=== PATIENT | male | born 1980 | race Caucasian/White ===

== ENCOUNTER 2016-06-10 07:35 | Day surgery (SDC) | payer OTHER, SELFPAY ==
[~2016-06-10 07:35] MED LIST: Bupivacaine 0.5% 50 ML MDV ONE; Lidocaine 1% with EPINEPHrine 1:100,000 50 ML MDV ONE
[2016-06-10] MEDS ORDERED: Sodium Chloride 0.9% 1,000 ML IV SCH (08:00)
[2016-06-10] MEDS ORDERED: ceFAZolin 2 GM in Premix Bag 1 BAG IV ONE (09:00)
[2016-06-10] MEDS ORDERED: fentaNYL 100 MCG/2 ML SDV ONE (09:04)
[2016-06-10] MEDS ORDERED: Midazolam 1 MG/ML 2 ML SDV ONE (09:04)
[2016-06-10] MEDS ORDERED: Propofol 200 MG/20 ML SDV ONE (09:04)
[2016-06-10] MEDS ORDERED: Bacitracin Oint 1 GM U/D Packet ONE (09:28)
[2016-06-10] MEDS ORDERED: Acetaminophen/HYDROcodone 325-5 MG Tab PO PRN (09:59)
[2016-06-10 10:28] VITALS: BP 120/72
--- NOTE | 2016-06-13 07:34 | OR ---
DATE OF PROCEDURE: 06/10/2016 PROCEDURE: Escharotomy, left thigh (3.2 x 5.1 cm). COMPLICATIONS: None. COST RECORDER: None. ANESTHESIA: MAC/local. INDICATIONS: This is a 36-year-old gentleman with an eschar due to a traumatic injury of his left leg. RISKS: The risks, benefits, alternatives, and limitations, including, but not limited to infection, bleeding, and reoperation were explained to the patient. PROCEDURE IN DETAIL: The patient was placed in supine position. The eschar was readily identified after being prepped and draped. This was removed using a Weck blade. This was carried down to where there was minimal bleeding, was controlled with direct pressure. After this, bacitracin and 4 x 4 dressings were applied. The patient tolerated the procedure well. Frankie León MD /[id number]
== END 2016-06-10 10:30 | disposition home or self-care (01) ==
LOC: JP.SDS 07:35
PROVIDERS: ATTEND Surgery
DX: R23.4 Changes in skin texture (principal); F41.8 Other specified anxiety disorders; E66.9 Obesity, unspecified; F17.200 Nicotine dependence, unspecified, uncomplicated; Z91.030 Bee allergy status; F90.9 Attention-deficit hyperactivity disorder, unspecified type
CPT/HCPCS: 16035; A9270; J0690; J2250; J2704; J3010; J7040

== ENCOUNTER 2016-06-17 20:34 | Emergency (ER) | payer OTHER, SELFPAY ==
[2016-06-17 21:19] VITALS: BP 153/80
--- NOTE | 2016-06-18 01:15 | EDM.PDOC ---
ED HPI GENERAL MEDICAL PROBLEM - General Chief Complaint: General Stated Complaint: illness Time Seen by Provider: 06/17/16 21:46 Source of Information: Reports: Patient, Family History Limitations: Reports: Physical impairment - History of Present Illness INITIAL COMMENTS - FREE TEXT/NARRATIVE: This patient was brought in by lady who I believe it is his . He's complaining of headaches today which began suddenly. He's never had headaches like this before. He said the headache comes on and then he gets sweaty and feels like he's going to pass out. Tonight he felt drunk and" fuzzy". His headache presently is pretty mild. He has not been vomiting. He has been eating and drinking okay. He has not taken anything for this headache. He denies any fever or chills. He denies any neck pain or stiffness. He denies body aches. Headache Pain Score (Numeric/FACES): 5 - Related Data Allergies Allergy/AdvReac Type Severity Reaction Status Date / Time venom-honey bee Allergy Airway Verified 06/10/16 08:29 [bee venom (honey bee)] Tightness Home Meds: Home Meds Acetaminophen/HYDROcodone [[place] 325-5 MG] 1 tab PO Q4H PRN 06/09/16 [History] Magnesium Oxide 400 mg PO BEDTIME 06/09/16 [History] Prazosin [Minpress] 1 mg PO BEDTIME 06/09/16 [History] QUEtiapine Fumarate [Seroquel] 50 mg PO BEDTIME 06/09/16 [History] Sulfamethoxazole/Trimethoprim [Bactrim Ds Tablet] 1 each PO BID 06/09/16 [ History] Zolpidem Tartrate [Ambien] 10 mg PO BEDTIME 06/09/16 [History] risperiDONE [RisperiDAL] 0.5 mg PO BEDTIME 06/09/16 [History] Hydrocodone/Acetaminophen [Hydrocodon-Acetaminophen 5-325] 1 each PO Q4HR [History] Past Medical History HEENT History: Reports: Otitis media, Other (see below) Other HEENT History: fb eye in past Cardiovascular History: Reports: None Respiratory History: Reports: None Gastrointestinal History: Reports: None Genitourinary History: Reports: None Musculoskeletal History: Reports: Fracture, Other (see below) Other Musculoskeletal History: ankle problem AND FEMUR FRACTURE Neurological History: Reports: None Psychiatric History: Reports: Anxiety, Bipolar, Depression, PTSD, Schizophrenia Endocrine/Metabolic History: Reports: Obesity/BMI 30+ Hematologic History: Reports: Blood transfusion(s) Immunologic History: Reports: None Oncologic (Cancer) History: Reports: None Dermatologic History: Reports: Other (see below) Other Dermatologic History: OPEN WOUND LEFT THIGH - Infectious Disease History Infectious Disease History: Reports: Chicken pox - Past Surgical History HEENT Surgical History: Reports: Myringotomy w tube(s) GI Surgical History: Reports: Hernia repair/other Other Musculoskeletal Surgeries/Procedures:: surgery left thigh Dermatological Surgical History: Reports: Skin graft Social & Family History - Family History Family Medical History: Noncontributory - Tobacco Use Smoking Status *Q: Current Every Day Smoker Years of Tobacco use: 20 Packs/Tins Daily: 2 Used Tobacco, but Quit: No Second Hand Smoke Exposure: No - Caffeine Use Caffeine Use: Reports: None - Alcohol Use Days Per Week of Alcohol Use: 1 Number of Drinks Per Day: 1 Total Drinks Per Week: 1 - Recreational Drug Use Recreational Drug Use: Yes Drug Use in Last 12 Months: Yes Recreational Drug Type: Reports: Marijuana/Hashish Recreational Drug Use Frequency: Daily ED ROS GENERAL - Review of Systems Review Of Systems: See Below Constitutional: Reports: other (See HPI) HEENT: Reports: Other (He denies any ear pain. He's had a lot of problems with his years in the past and still has a tube lodged in the right tympanic membrane.) Respiratory: Reports: No Symptoms Cardiovascular: Reports: No symptoms Endocrine: Reports: no symptoms GI/Abdominal: Reports: No symptoms : Reports: no symptoms Musculoskeletal: Reports: no symptoms. Denies: neck pain Skin: Reports: no symptoms Neurological: Reports: Headache, Other (See HPI) Psychiatric: Reports: No symptoms Hematologic/Lymphatic: Reports: no symptoms ED EXAM, GENERAL - Physical Exam Exam: See Below Exam Limited By: No limitations General Appearance: other (He seems somnolent but is actually awake and opens his eyes to be examined) Eye Exam: bilateral eye: EOMI, normal fundi (Unable to visualize fundi), PERRL Ears: other (Right tympanic membrane shows a blue tube embedded in it there is no erythema. There is no tenderness to the right mastoid. The left tympanic membrane has some cerumen impaction also that ear is nontender) Nose: normal inspection Throat/Mouth: Normal inspection, Normal oropharynx Head: atraumatic Neck: normal inspection, supple, non-tender, full range of motion Respiratory/Chest: wheezing (There is a loud wheeze in the right upper lung field anteriorly. This disappears after the exam) Cardiovascular: normal peripheral pulses, regular rate, rhythm, no murmur Peripheral Pulses: 2+: radial (L), radial (R) GI/Abdominal: soft, non tender Back Exam: normal inspection Extremities: normal inspection Neurological: alert (He seemed more alert after I had him lie supine and then later said up.), oriented, CN II-XII intact, normal cognition, no motor/sensory deficits Psychiatric: normal affect Skin Exam: Warm, Dry Course - Vital Signs Last Recorded V/S: Last Vital Signs Temp 37.2 C 06/17/16 21:37 Pulse 78 06/17/16 21:37 Resp 16 06/17/16 21:37 BP 153/80 H 06/17/16 21:37 Pulse Ox 98 06/17/16 21:37 - Orders/Labs/Meds Orders: Active Orders 24 hr Category Date Time Status Chest 2V [CR] Urgent Exams 06/17/16 22:01 Taken Head wo Cont [CT] Stat Exams 06/17/16 22:02 Taken Labs: Laboratory Tests 06/17/16 06/17/16 06/17/16 Range/Units 22:05 22:05 22:51 WBC 7.7 (4.5-11.0) K/uL RBC 4.62 (4.30-5.90) M/uL Hgb 14.0 (12.0-15.0) g/dL Hct 42.8 (40.0-54.0) % MCV 93 (80-98) fL MCH 30 (27-31) pg MCHC 33 (32-36) % Plt Count 222 (150-400) K/uL Neut % (Auto) 57 (36-66) % Lymph % (Auto) 27 (24-44) % Frio % (Auto) 11 H (2-6) % Eos % (Auto) 4 (2-4) % Baso % (Auto) 1 (0-1) % Sodium 143 (140-148) mmol/L Potassium 4.0 (3.6-5.2) mmol/L Chloride 104 (100-108) mmol/L Carbon Dioxide 29 (21-32) mmol/L Anion Gap 10.4 (5.0-14.0) mmol/L BUN 13 (7-18) mg/dL Creatinine 0.9 (0.8-1.3) mg/dL Est Cr Clr Drug Dosing 133.01 mL/min Estimated GFR (MDRD) > 60 (>60) Glucose 128 H (74-106) mg/dL Calcium 8.6 (8.5-10.1) mg/dL Total Bilirubin 0.2 (0.2-1.0) mg/dL AST 16 (15-37) U/L ALT 35 (12-78) U/L Alkaline Phosphatase 69 (46-116) U/L Total Protein 7.0 (6.4-8.2) g/dL Albumin 3.4 (3.4-5.0) g/dL Globulin 3.6 H (2.3-3.5) g/dL Albumin/Globulin Ratio 0.9 L (1.2-2.2) Urine Color Yellow Urine Appearance Clear Urine pH 6.0 (4.5-8.0) Ur Specific [place] 1.020 (1.008-1.030) Urine Protein Negative (NEGATIVE) mg/dL Urine Glucose (UA) Normal (NEGATIVE) mg/dL Urine Ketones Negative (NEGATIVE) mg/dL Urine Occult Blood Negative (NEGATIVE) Urine Nitrite Negative (NEGAITVE) Urine Bilirubin Negative (NEGATIVE) Urine Urobilinogen Normal (NORMAL) mg/dL Ur Leukocyte Esterase Negative (NEGATIVE) Urine RBC 0-5 (0-5) Urine WBC 0-5 (0-5) Ur Epithelial Cells Rare Amorphous Sediment Not seen Urine Bacteria Few Urine Mucus Not seen - Radiology Interpretation Free Text/Narrative:: CT of the head shows no abnormal intracranial process - Re-Assessments/Exams Free Text/Narrative Re-Assessment/Exam: 06/18/16 01:15 Labs were done on this patient and were reviewed. When the patient came back from CT his indicated that he was getting antsy. A few minutes later she informed me that the patient had eloped. His says that is call if there is anything abnormal. Prior to doing the CT I discussed with the patient that I thought his symptoms were unusual. I don't have any high suspicion of a bleed or meningitis however a case could be made for a lumbar puncture. I explained what it was and that it was used to diagnose meningitis or subarachnoid hemorrhage and that missing one of these diagnoses would be catastrophic. His asked if we could wait until after the CT prior to doing the LP and I said that would be fine. The patient eloped from the ER and at this point after observing him in the ER for a while I am not suspicious of anything acute such as meningitis or subarachnoid hemorrhage. Departure - Departure Time of Disposition: :19 Disposition: Eloped 07 Condition: fair Clinical Impression: Headache Referrals: Frankie León MD [Primary Care Provider] - Forms: ED Department Discharge - My Orders Last 24 Hours: My Active Orders 06/17/16 22:01 Chest 2V [CR] Urgent 06/17/16 22:02 Head wo Cont [CT] Stat - Assessment/Plan Last 24 Hours: My Active Orders 06/17/16 22:01 Chest 2V [CR] Urgent 06/17/16 22:02 Head wo Cont [CT] Stat
--- NOTE | 2016-06-20 09:50 | CR ---
Chest 2V INDICATION: pain FINDINGS: Comparison 08/26/2006. Benign calcified granuloma left upper lobe. Heart size borderline en larged. Mild hypertrophic changes thoracic spine. Chest otherwise negative.
== END 2016-06-18 00:20 | disposition left against medical advice (07) ==
LOC: JP.ED 20:34
DX: R51 Headache (principal); F41.9 Anxiety disorder, unspecified; F31.9 Bipolar disorder, unspecified; F20.9 Schizophrenia, unspecified; E66.9 Obesity, unspecified; Z68.30 Body mass index [BMI] 30.0-30.9, adult; Z98.890 Other specified postprocedural states; F17.210 Nicotine dependence, cigarettes, uncomplicated; Z91.030 Bee allergy status
CPT/HCPCS: 36415; 70450; 71020; 71020-26; 80053; 81001; 85025; 87804; 99284-25

== ENCOUNTER 2016-07-28 06:36 | Inpatient (IN) | payer OTHER ==
[2016-07-28] MEDS ORDERED: Mineral Oil 10 ML Bottle ONE (06:40)
[2016-07-28] MEDS ORDERED: Lidocaine 1% with EPINEPHrine 1:100,000 50 ML MDV ONE (06:41)
[2016-07-28] MEDS ORDERED: Sodium Chloride 0.9% 1,000 ML IV SCH (07:00)
[2016-07-28] MEDS ORDERED: Lidocaine 2% Jelly 10 ML Urojet ONE (07:30)
[2016-07-28] MEDS ORDERED: metroNIDAZOLE/Normal Saline 500 MG in Premix Bag 1 BAG IV ONE (07:30)
[2016-07-28] MEDS ORDERED: ceFAZolin 2 GM in Premix Bag 1 BAG IV ONE (07:30)
[2016-07-28] MEDS ORDERED: Mineral Oil 10 ML Bottle TOP ONE (08:00)
[2016-07-28] MEDS ORDERED: Bacitracin Oint 28.35 GM Tube TOP ONE (08:00)
[2016-07-28] MEDS ORDERED: fentaNYL/Normal Saline 600 MCG/30 ML PCA Vial IV PRN (08:40)
[2016-07-28] MEDS ORDERED: Naloxone 0.4 MG/ML SDV IVPUSH PRN (08:40)
[2016-07-28] MEDS ORDERED: fentaNYL 250 MCG/5 ML SDV ONE (08:42)
[2016-07-28] MEDS ORDERED: Midazolam 1 MG/ML 2 ML SDV ONE (08:42)
[2016-07-28] MEDS ORDERED: Succinylcholine/Normal Saline 200 MG/10 ML Syringe ONE (08:42)
[2016-07-28] MEDS ORDERED: Propofol 200 MG/20 ML SDV ONE ×2 (08:42→10:00)
[2016-07-28] MEDS ORDERED: Neostigmine Methylsulfate 1 MG/ML 5 ML Syringe ONE (08:42)
[2016-07-28] MEDS ORDERED: Ondansetron 4 MG/2 ML SDV ONE (08:42)
[2016-07-28] MEDS ORDERED: Dexamethasone 4 MG/ML SDV ONE (08:42)
[2016-07-28] MEDS ORDERED: Naloxone 0.4 MG/ML SDV IV PRN (08:42)
[2016-07-28] MEDS ORDERED: fentaNYL 100 MCG/2 ML SDV ONE (08:42)
[2016-07-28] MEDS ORDERED: Rocuronium 50 MG/5 ML Vial ONE (08:42)
[2016-07-28] MEDS ORDERED: Metoclopramide 10 MG/2 ML SDV IV PRN (08:43)
[2016-07-28] MEDS ORDERED: Ondansetron 4 MG/2 ML SDV IVPUSH PRN (08:43)
[2016-07-28] MEDS ORDERED: Promethazine 25 MG/ML SDV IM PRN (08:43)
[2016-07-28] MEDS ORDERED: Benzocaine/Cetylpyridinium/Menthol Lozenge MUCMEM PRN (08:43)
[2016-07-28] MEDS ORDERED: Docusate Sodium 100 MG Cap PO PRN (08:43)
[2016-07-28] MEDS ORDERED: Bisacodyl 5 MG Tab PO PRN (08:43)
[2016-07-28] MEDS ORDERED: diphenhydrAMINE 50 MG/ML SDV IVPUSH PRN (08:43)
[2016-07-28] MEDS ORDERED: Zolpidem 5 MG Tab PO PRN ×2 (08:43→14:28)
[2016-07-28] MEDS ORDERED: Acetaminophen/HYDROcodone 325-10 MG Tab PO PRN (08:43)
[2016-07-28] MEDS ORDERED: ceFAZolin 2 GM in Sodium Chloride 0.9% 100 ML IV SCH (08:45)
[2016-07-28] MEDS ORDERED: LORazepam 2 MG/ML MDV IVPUSH PRN (08:47)
[2016-07-28] MEDS ORDERED: Nicotine 7 MG/24 Hr Patch TRDERM ONE ×2 (09:00)
[2016-07-28] MEDS ORDERED: ceFAZolin 2 GM in Sodium Chloride 0.9% 50 ML IV SCH (14:00)
[2016-07-28 14:22] VITALS: BP 104/75
[2016-07-28] MEDS ORDERED: Ciprofloxacin 500 MG Tab PO SCH (16:30)
--- NOTE | 2016-07-28 19:30 | DISCH ---
DISCHARGE DIAGNOSIS: Split-thickness skin graft, left leg. SUMMARY OF HOSPITAL COURSE: A pleasant 36-year-old male, who underwent a split-thickness skin graft today. The patient was scheduled for Monday, for approximately 5 days. Unfortunately, due to personal concerns, he would like to leave today. We discussed risks, benefits, alternatives, limitations of this plan including the high risk of graft failure by this course. They understand these risks and wish to proceed. DISCHARGE INSTRUCTIONS: 1. Follow up with Surgery on Monday. 2. Dressings: Leave intact. Do not change dressing. 3. Showering : Do not shower. 4. Activity: Limited to around the house and bathroom use only.
[2016-07-28] MEDS ORDERED: risperiDONE 1 MG Tab PO SCH (21:00)
[2016-07-28] MEDS ORDERED: Magnesium Oxide 400 MG Tab PO SCH (21:00)
[2016-07-28] MEDS ORDERED: Prazosin 1 MG Cap PO SCH (21:00)
[2016-07-28] MEDS ORDERED: QUEtiapine 25 MG Tab PO SCH (21:00)
--- NOTE | 2016-07-29 07:26 | OR ---
DATE OF PROCEDURE: 07/28/2016 PROCEDURE: 1. Surgical preparation of left side by removing of chronic scar (71282). 2. Split-thickness skin graft, left thigh, 3.1 cm x 5.2 cm ([id number]). COMPLICATIONS: None. METAL GAUGE MAKER: None. INDICATIONS: This is a 36-year-old male, who had a skin graft a couple of decades ago. Unfortunately, he re-traumatized the skin graft area. The patient was treated nonoperatively initially for approximately 2-3 weeks, but was refractory to this treatment. He is also refractory to wound VAC placement. The patient was noted to be high risk for skin grafting due to his smoking, previous graft history, and issues with compliance. Risks, benefits, alternatives, and limitations including the high probability of requirement for re-grafting was explained to the patient. They wished to proceed. PROCEDURE IN DETAIL: The patient was placed in supine position. The left leg skin graft site was prepared using a Weck blade. This was set to 12,000. This was used in conjunction with electrocautery to remove the chronic scar. This was then thoroughly irrigated and a #15 blade was also used to rough the donor site. A small petechiae type bleeding, which would be most conducive for skin graft acceptance was noted. Additional bleeding was controlled by electrocautery. Lidocaine with epinephrine was used to also control hemostasis at the recipient site. The donor site was then prepared by using mineral oil. A dermatome set to 12,000 depth was then used to harvest the graft. The graft was then meshed in a 1.5 to 1 ratio. Careful attention was made to keep the donor graft oriented (no evidence of clipping). Once this was meshed, this was irrigated again. This was then stitched into place using interrupted chromic sutures. Lidocaine with epinephrine was used to control bleeding at the donor site. Tegaderm with bacitracin was used to dress the donor site. The recipient site was then covered with bacitracin and Xeroform and multiple layers of 4x4s, John, and Kerlix, and this was then taped into place due to concern of the patient's movement postoperatively. The patient tolerated the procedure well. Frankie León MD /[id number]
[2016-07-29] MEDS ORDERED: Enoxaparin 40 MG/0.4 ML Syringe SUBCUT SCH (09:00)
== END 2016-07-28 16:13 | disposition home or self-care (01) | DRG 578 ==
LOC: JP.SDS 06:36 → JP.MS 06:36 → EDSTATUS 11:30
PROVIDERS: ADMIT Surgery; ATTEND Surgery
PROC: 0HRJX74 Replacement of Left Upper Leg Skin with Autologous Tissue Substitute, Partial Thickness, External Approach (ICD-10-PCS; principal; 2016-07-28)
DX: S81.802A Unspecified open wound, left lower leg, initial encounter (principal); Z94.5 Skin transplant status; F17.210 Nicotine dependence, cigarettes, uncomplicated
CPT/HCPCS: A9270-GY; C1762; J0690; J1100; J2060; J2250; J2405; J2704; J3010; J7040; J7050

== ENCOUNTER 2016-07-30 11:26 | Emergency (ER) | payer OTHER ==
[2016-07-30 12:10] VITALS: BP 159/108
[2016-07-30] MEDS ORDERED: Acetaminophen/HYDROcodone 325-10 MG Tab PO ONE (12:52)
--- NOTE | 2016-07-30 12:58 | EDM.PDOC ---
ED HPI GENERAL MEDICAL PROBLEM - General Chief Complaint: Lower Extremity Injury/Pain Stated Complaint: LEFT LEG POST SX COMPLICATION Time Seen by Provider: 07/30/16 12:25 Source of Information: Reports: Patient, Family () History Limitations: Reports: No Limitations - History of Present Illness INITIAL COMMENTS - FREE TEXT/NARRATIVE: With left lower knee pain starting on Monday. Had a skin graft on with Dr. León. OR notes reviewed. Pt feels like pain in graft is being well controlled but knee pain is extreme. Rates pain a 9. Able to move left foot without difficulty. Foot is cool to touch. Dressing to upper thigh clean and intact. concerned about a clot. Pt denies shortness of breath. Pt last took a pain pill at 0830. Onset: Gradual Onset Date: 07/27/16 Duration: Intermittent Location: Reports: Lower Extremity, Left Quality: Reports: Pressure, Sharp (stabbing to knee at times) Severity: Moderate Improves with: Reports: Medication Worsens with: Reports: None Context: Reports: Other (recent surgery with skin graft) Treatments GUEST SERVICE REPRESENTATIVE: Reports: Other (see below) Left Leg Pain Score (Numeric/FACES): 9 - Related Data Allergies Allergy/AdvReac Type Severity Reaction Status Date / Time venom-honey bee Allergy Airway Verified 07/30/16 12:10 [bee venom (honey bee)] Tightness Home Meds: Home Meds Magnesium Oxide 400 mg PO BEDTIME 06/09/16 [History] Prazosin [Minpress] 1 mg PO BEDTIME 06/09/16 [History] QUEtiapine Fumarate [Seroquel] 50 mg PO BEDTIME 06/09/16 [History] Zolpidem Tartrate [Ambien] 10 mg PO BEDTIME 06/09/16 [History] risperiDONE [RisperiDAL] 1 mg PO BID 06/09/16 [History] Ciprofloxacin [Ciprofloxacin HCl] 500 mg PO BID 07/26/16 [History] Acetaminophen/HYDROcodone [[place] 325-10 MG] 1 tab PO Q4H PRN 07/30/16 [History] Past Medical History HEENT History: Reports: Otitis Media, Other (See Below) Other HEENT History: metal in eye in past Cardiovascular History: Reports: None Respiratory History: Reports: None Gastrointestinal History: Reports: None Genitourinary History: Reports: None Musculoskeletal History: Reports: Fracture, Other (See Below) Other Musculoskeletal History: ankle problem AND FEMUR FRACTURE Neurological History: Reports: None Psychiatric History: Reports: Anxiety, Bipolar, Depression, PTSD, Schizophrenia Endocrine/Metabolic History: Reports: Obesity/BMI 30+ Hematologic History: Reports: Blood Transfusion(s) Immunologic History: Reports: None Oncologic (Cancer) History: Reports: None Dermatologic History: Reports: Other (See Below) Other Dermatologic History: OPEN WOUND LEFT THIGH repaired with skin grafting on 07/28/2016. - Infectious Disease History Infectious Disease History: Reports: Chicken Pox - Past Surgical History HEENT Surgical History: Reports: Myringotomy w Tube(s) GI Surgical History: Reports: Hernia Repair/Other Endocrine Surgical History: Reports: None Musculoskeletal Surgical History: Reports: Other (See Below) Other Musculoskeletal Surgeries/Procedures:: surgery left thigh Dermatological Surgical History: Reports: Skin Graft Social & Family History - Family History Family Medical History: Noncontributory - Tobacco Use Smoking Status *Q: Heavy Tobacco Smoker Years of Tobacco use: 24 Packs/Tins Daily: 0.2 Used Tobacco, but Quit: No Second Hand Smoke Exposure: Yes - Caffeine Use Caffeine Use: Reports: None - Alcohol Use Days Per Week of Alcohol Use: 1 Number of Drinks Per Day: 1 Total Drinks Per Week: 1 - Recreational Drug Use Recreational Drug Use: Yes Drug Use in Last 12 Months: Yes Recreational Drug Type: Reports: Marijuana/Hashish Recreational Drug Use Frequency: Daily Review of Systems - Review of Systems Review Of Systems: See Below Constitutional: Reports: No Symptoms Ears: Reports: Other (ongoing ear issues) Nose: Reports: No Symptoms Mouth/Throat: Reports: No Symptoms Respiratory: Reports: No Symptoms Cardiovascular: Reports: No Symptoms GI/Abdominal: Reports: No Symptoms, Other (normal bm this am) Musculoskeletal: Reports: Leg Pain Skin: Reports: Other (graft dressing in place to knee. Instructions to not remove it.) Neurological: Reports: Other (left leg numbness from thigh to toes) Psychiatric: Reports: No Symptoms Trauma Exam - Physical Exam Exam: See Below Exam Limited By: No Limitations General Appearance: Reports: Alert, WD/WN, Moderate Distress Head: Reports: Atraumatic, Normocephalic Respiratory Exam: Reports: No Respiratory Distress Cardiovascular: Reports: Normal Peripheral Pulses, Regular Rate, Rhythm, No Edema, No Gallop, No JVD, No Murmur, No Rub Extremities: Pain with Movement, Other (sensation intact although pt feels like left leg is numb. Mild swelling noted. Left lower leg cool to touch. Pedal pulse present on exam.) Skin: Reports: Normal Color, Warm/Dry, Other (graft to left thigh with tegaderm in place. No drainage noted. Bulky dressing to left knee intact.) Course - Vital Signs Last Recorded V/S: Last Vital Signs Temp 97.6 F 07/30/16 12:05 Pulse 74 07/30/16 12:05 Resp 18 07/30/16 12:05 BP 159/108 H 07/30/16 12:05 Pulse Ox 98 07/30/16 12:05 - Orders/Labs/Meds Meds: Medications Discontinued Medications Generic Name Dose Route Start Last Admin Trade Name Freq PRN Reason Stop Dose Admin Hydrocodone Bitart/Acetaminophen 1 tab 07/30/16 12:52 07/30/16 13:06 [place] 325-10 Mg PO 07/30/16 12:53 1 tab ONETIME ONE Administration Departure - Departure Time of Disposition: 13:58 Disposition: Against Medical Advice 07 Condition: fair Clinical Impression: Knee pain, left Qualifiers: Chronicity: acute Qualified Code(s): M25.562 - Pain in left knee - Discharge Information Forms: ED Department Discharge Additional Instructions: Pain pill given to pt with cottage cheese and milk. He did voice slight improvement in pain. Venous doppler ordered. Pt refuses to wait for ultrasound. States that his pain was like this before this surgery so he isn't sure what the test will do to help him. I did consult with Dr. Fraga regarding a plan for this pt. prior to ordering the testing. Pt upset that he is wanting to leave AMA. I did again reinforce that the testing is needed to determine the source of his pain but he leaves AMA and does sign the form. I did stress that he needs to followup with his surgeon on Monday. - Problem List & Annotations (1) Knee pain, left SNOMED Code(s): 23483126 Code(s): M25.562 - PAIN IN LEFT KNEE Status: Acute Priority: Low Current Visit: Yes
== END 2016-07-30 13:52 | disposition left against medical advice (07) ==
LOC: JP.ED 11:26
DX: M25.562 Pain in left knee (principal); F31.9 Bipolar disorder, unspecified; F20.9 Schizophrenia, unspecified; F17.210 Nicotine dependence, cigarettes, uncomplicated; E66.9 Obesity, unspecified; Z68.30 Body mass index [BMI] 30.0-30.9, adult; Z91.030 Bee allergy status; Z79.899 Other long term (current) drug therapy; Z96.22 Myringotomy tube(s) status; Z98.890 Other specified postprocedural states
CPT/HCPCS: 99283; A9270

== ENCOUNTER → 2016-08-20 | Day surgery (SDC) | payer OTHER ==
[~2016-08-20] MED LIST changes: +Linezolid 600 MG in Premix Bag 1 BAG IV ONE; +Midazolam 1 MG/ML 5 ML SDV ONE; +Propofol 200 MG/20 ML SDV ONE; +fentaNYL 250 MCG/5 ML SDV ONE
[2016-08-20 06:28] VITALS: BP 136/77
--- NOTE | 2016-08-24 10:25 | OR ---
DATE OF PROCEDURE: 08/20/2016 PREOPERATIVE DIAGNOSIS: Inadequate peripheral venous access. POSTOPERATIVE DIAGNOSIS: Inadequate peripheral venous access. OPERATIVE PROCEDURE: Placement of a double-lumen Orozco catheter via left subclavian vein approach ([id number]). ANESTHESIA: Local plus IV sedation. INDICATION FOR PROCEDURE: This is a 36-year-old who is requiring ongoing IV antibiotics, who now has lost his PICC line access and has very limited peripheral venous access. Given this, a Orozco catheter is to be placed. Potential risks of the procedure were reviewed with the patient and his including bleeding, infection, possible pneumohemothorax, problems with the catheter becoming occluded, or infected over time were reviewed, and the patient wishes to proceed. DETAILS OF PROCEDURE: The patient was taken to the operating room and placed in a supine position. IV sedation was administered, after which the upper chest and neck areas were prepped and draped. The left subclavian area was anesthetized with 1% lidocaine and the vein cannulated. Guidewire manipulated into the superior vena cava. Some additional local anesthetic was injected at a point roughly 4 fingerbreadths below the original puncture site and the area between those two was also anesthetized with the local anesthetic. Stab wounds were placed at the initial puncture site over the wire and at a point 4 fingerbreadths below the puncture site and the Orozco catheter was then tunneled between those two with the catheter being placed just inside the skin of the incisions. The catheter was cut such that the tip would lie within the upper right atrium and the port via the peel-away catheter system without difficulty. Good in and outflow was noted. The ports were flushed with heparinized saline once again. The catheter was sutured to skin level with a 3-0 nylon stitch and the puncture site closed with a 4-0 Vicryl subcuticular stitch. Steri-Strips applied. The patient was taken to the recovery room in satisfactory condition. There were no evident complications. Raghu Arellano MD /[id number]
== END ==
LOC: JP.SDS 06:04
PROVIDERS: ATTEND Surgery
DX: Z45.2 Encounter for adjustment and management of vascular access device (principal); I25.10 Atherosclerotic heart disease of native coronary artery without angina pectoris; Z88.1 Allergy status to other antibiotic agents; Z91.030 Bee allergy status
CPT/HCPCS: 36558; J1642; J2020; J2250; J2704; J3010

== ENCOUNTER 2016-09-27 11:44 | Day surgery (SDC) | payer OTHER, SELFPAY ==
[2016-09-27] MEDS ORDERED: Propofol 200 MG/20 ML SDV ONE ×2 (11:56→12:51)
[2016-09-27] MEDS ORDERED: Bupivacaine 0.5% 50 ML MDV ONE (12:05)
[2016-09-27] MEDS ORDERED: Lidocaine 1% with EPINEPHrine 1:100,000 50 ML MDV ONE (12:06)
[2016-09-27] MEDS ORDERED: ceFAZolin 2 GM in Premix Bag 1 BAG IV ONE (12:30)
[2016-09-27] MEDS ORDERED: Sodium Chloride 0.9% 1,000 ML IV SCH (12:30)
[2016-09-27] MEDS ORDERED: Lidocaine 1% 4 ML ONE (12:32)
[2016-09-27] MEDS ORDERED: fentaNYL 100 MCG/2 ML SDV ONE (12:42)
[2016-09-27] MEDS ORDERED: Bacitracin Oint 1 GM U/D Packet ONE (13:03)
[2016-09-27] MEDS ORDERED: Morphine 2 MG/ML Syringe IVPUSH PRN (13:54)
[2016-09-27] MEDS ORDERED: Acetaminophen/HYDROcodone 325-10 MG Tab PO PRN (13:54)
[2016-09-27 14:19] VITALS: BP 134/75
--- NOTE | 2016-09-28 08:35 | OR ---
DATE OF PROCEDURE: 09/27/2016 PROCEDURE: 1. Removal of left subclavian tunneled Orozco catheter. 2. Drainage abscess, left chest. COMPLICATIONS: None. INVESTOR RELATIONS MANAGER: None. ANESTHESIA: MAC/local. INDICATIONS: A pleasant gentleman who requires removal of the Orozco catheter due to infection. Risks, benefits, alternatives, and limitations, including, but not limited to infection, bleeding, and injury to structures were explained to the patient and wished to proceed. PATHOLOGY: 1. Cultures of the wound site. 2. Cultures of the catheter tip. PROCEDURE IN DETAIL: The patient was placed in supine position. The left chest was prepped and draped. The patient noted to have drainage from his wound and this was subsequently cultured. This wound is in respect to the exit point of the Orozco catheter. This was then removed and the previous location where the catheter had been brought through during the original procedure was opened and drained also. These were cultured and the tip of the catheter was cut and sent for culture also. This was then thoroughly irrigated through the 2 holes, one is an entry and one is an exit point. A quarter-inch iodoform was then passed through this, dressings were applied. The patient tolerated the procedure well. Frankie León MD /[id number]
--- NOTE | 2016-09-30 08:03 | ANES ---
DATE OF SERVICE: 09/27/2016 ADDENDUM: The anesthesia total for propofol should be 400 mg instead of 200 mg. I ended up giving him 400 mg total for the procedure. Fadi Brady CRNA /[id number]
== END 2016-09-27 14:24 | disposition home or self-care (01) ==
LOC: JP.SDS 11:44
PROVIDERS: ATTEND Surgery
PROC: 0WP803Z Removal of Infusion Device from Chest Wall, Open Approach (ICD-10-PCS; principal; 2016-09-27)
DX: T82.7XXA Infection and inflammatory reaction due to other cardiac and vascular devices, implants and grafts, initial encounter (principal); Y83.8 Other surgical procedures as the cause of abnormal reaction of the patient, or of later complication, without mention of misadventure at the time of the procedure; T81.4XXA Infection following a procedure, initial encounter; J86.9 Pyothorax without fistula
CPT/HCPCS: 36590; 87070; 87075; 87077; 87186; 87205; A9270; J0690; J2704; J3010; J7040; J1642

== ENCOUNTER 2016-10-27 15:34 | Day surgery (SDC) | payer OTHER ==
[2016-10-27] MEDS ORDERED: Bupivacaine 0.5% 50 ML MDV ONE (15:45)
[2016-10-27] MEDS ORDERED: Lidocaine 1% with EPINEPHrine 1:100,000 50 ML MDV ONE (15:46)
[2016-10-27] MEDS ORDERED: Sodium Chloride 0.9% 1,000 ML IV SCH (16:00)
[2016-10-27] MEDS ORDERED: Dexamethasone 4 MG/ML SDV ONE (16:29)
[2016-10-27] MEDS ORDERED: Glycopyrrolate 0.2 MG/ML 5 ML MDV ONE (16:29)
[2016-10-27] MEDS ORDERED: Succinylcholine 200 MG/10 ML MDV ONE (16:29)
[2016-10-27] MEDS ORDERED: Ondansetron 4 MG/2 ML SDV ONE (16:29)
[2016-10-27] MEDS ORDERED: Propofol 200 MG/20 ML SDV ONE (16:29)
[2016-10-27] MEDS ORDERED: Neostigmine Methylsulfate 1 MG/ML 5 ML Syringe ONE (16:29)
[2016-10-27] MEDS ORDERED: Rocuronium 50 MG/5 ML Vial ONE (16:29)
[2016-10-27] MEDS: fentaNYL 100 MCG/2 ML SDV IVPUSH ONE ×2 (17:04→19:27)
[2016-10-27] MEDS: Ertapenem 1 GM in Sodium Chloride 0.9% 100 ML IV ONE ×2 (17:10→19:26)
[2016-10-27] MEDS ORDERED: Bacitracin Oint 1 GM U/D Packet ONE (17:50)
[2016-10-27] MEDS ORDERED: fentaNYL 100 MCG/2 ML SDV IVPUSH ONE (18:26)
[2016-10-27] MEDS ORDERED: fentaNYL 100 MCG/2 ML SDV ONE (18:26)
[2016-10-27] MEDS ORDERED: Morphine 2 MG/ML Syringe IVPUSH PRN (19:33)
[2016-10-27] MEDS ORDERED: Acetaminophen/HYDROcodone 325-10 MG Tab PO PRN ×2 (19:34→19:50)
[2016-10-27 19:42] VITALS: BP 95/68
[2016-10-27] MEDS ORDERED: Morphine 10 MG/ML Syringe ONE (19:50)
--- NOTE | 2016-10-28 08:26 | CR ---
Chest 1V Frontal INDICATION: INSERTION OF TLSC COMPARISON: 06/17/2016 FINDINGS: Single portable view of the chest. ET tube in the mid trachea. Cardiomegaly. Right upper lobe infiltrate and volume loss. Recommend follow-up exam to confirm clearing.
--- NOTE | 2016-10-28 11:36 | OR ---
DATE OF PROCEDURE: 10/27/2016 PROCEDURES: 1. Incision and drainage of the abscess, left third finger, approximately 5 cm. 2. Incision and drainage of left forearm abscess, depth 2.5 cm. 3. Central line placement, left subclavian. COMPLICATIONS: None. MANAGER OF PMO: None. ANESTHESIA: General. PREOPERATIVE DIAGNOSES: Cellulitis/abscess. POSTOPERATIVE DIAGNOSES: Cellulitis/abscess. INDICATIONS: This is a 36-year-old male, who has a significant infection of unknown etiology requiring incision and drainage along with long-term IV access as the patient failed previous PICC line and IV attempts. RISKS: Risks, benefits, alternatives, and limitations were explained to the patient. The patient is not n.p.o. and we discussed aspiration risk and other risks, however, it is evident that the patient's infection is significant and the risks of nonoperative status is greater than the risk of surgical intervention. We also discussed infection, bleeding, sepsis, worsening infection. We discussed the risks of not having the procedure. PROCEDURE IN DETAIL: The patient was placed in supine position. Subclavian access will be performed first. This was performed by introducing a micropuncture needle kit into the left subclavian vein. This was accessed on the first pass without difficulty. The micropuncture needle kit will be exchanged for a 35,000 wire. The dilator was introduced and the triple lumen was passed without difficulty. This was dark blood and PAC/PVCs were noted with wire advancement. Once this was complete, this was sutured in place and secured with a Tegaderm. The incision and drainage of abscess will be performed first. This was incised at the proximal phalange and was tunneled up into the end over the metacarpals. This did not appear to be tunneled deeper than this. This was cultured and thoroughly irrigated. A piece of iodoform gauze quarter-inch was able to be passed through this tract. Incision and drainage of the abscess of the forearm was then performed next without difficulty. This was thoroughly irrigated and also packed with Iodoform gauze. Dressings were applied. The patient tolerated the procedure well. Frankie León MD /[id number]
[2016-10-28] MEDS ORDERED: Ertapenem 1 GM in Sodium Chloride 0.9% 100 ML IV SCH (16:00)
== END 2016-10-27 20:20 | disposition home or self-care (01) ==
LOC: JP.SDS 15:34
PROVIDERS: ATTEND Surgery
DX: L02.512 Cutaneous abscess of left hand (principal); L02.414 Cutaneous abscess of left upper limb; Z88.1 Allergy status to other antibiotic agents; Z91.030 Bee allergy status; F17.210 Nicotine dependence, cigarettes, uncomplicated
CPT/HCPCS: 10061; 26011; 36415; 36558; 71010; 80048; 85027; 87070; 87075; 87077; 87186; 87205; C1894; J0330; J1100; J1335; J1642; J2405; J2704; J2710; J3010; J7030

== ENCOUNTER 2018-07-23 07:43 | Emergency (ER) | payer OTHER, MEDICAID ==
[2018-07-23] MEDS ORDERED: Sodium Chloride 0.9% 10 ML Syringe FLUSH PRN ×2 (08:22)
[2018-07-23] MEDS ORDERED: Ketorolac 30 MG/ML SDV IVPUSH ONE (08:24)
[2018-07-23] MEDS ORDERED: Ondansetron 4 MG/2 ML SDV IVPUSH ONE (08:24)
--- NOTE | 2018-07-23 08:29 | EDM.PDOC ---
ED HPI GENERAL MEDICAL PROBLEM - General Chief Complaint: General Stated Complaint: INFECTION IN EARS AND FACE HEAD PAIN Time Seen by Provider: 07/23/18 08:15 Source of Information: Reports: Patient, Family, Old Records, RN Notes Reviewed History Limitations: Reports: No Limitations - History of Present Illness INITIAL COMMENTS - FREE TEXT/NARRATIVE: 38-year-old gentleman presents emergency department today with complaint of headache chills "feeling like there is bubbles in my head and I want taken vacuuming get it out" coming does have a known history of schizoaffective disorder does have chronic wound left thigh has visited with infectious disease specialists in the past has upcoming visit with infectious disease in August of this year. He states over the last couple weeks his headache has progressively gotten worse he's had chills he is nauseated he feels like it's an infection going on yesterday with his primary care been treated with Bactrim which she usually does provide some relief however it has not provided any relief at this time. Does complain of shortness of breath Generalized Pain Score (Numeric/FACES): 6 - Related Data Allergies Allergy/AdvReac Type Severity Reaction Status Date / Time venom-honey bee Allergy Severe Airway Verified 07/23/18 08:00 [bee venom (honey bee)] Tightness amoxicillin Allergy Hives Verified 07/23/18 08:00 Home Meds: Home Meds Prazosin [Minpress] 5 mg PO BEDTIME 06/09/16 [History] DULoxetine HCl [Duloxetine HCl] 1 tab PO DAILY 07/23/18 [History] Gabapentin [Neurontin] 300 mg PO BEDTIME 07/23/18 [History] Sulfamethoxazole/Trimethoprim [Sulfamethoxazole-Tmp Ds Tablet] 1 each PO BID [History] Past Medical History HEENT History: Reports: Otitis Media, Other (See Below) Other HEENT History: metal in eye in past Musculoskeletal History: Reports: Fracture, Other (See Below) Other Musculoskeletal History: ankle problem AND FEMUR FRACTURE Psychiatric History: Reports: Anxiety, Bipolar, Depression, PTSD, Schizophrenia Endocrine/Metabolic History: Reports: Obesity/BMI 30+ Hematologic History: Reports: Blood Transfusion(s) Dermatologic History: Reports: Other (See Below) Other Dermatologic History: OPEN WOUND LEFT THIGH repaired with skin grafting on 07/28/2016. - Infectious Disease History Infectious Disease History: Reports: Chicken Pox - Past Surgical History HEENT Surgical History: Reports: Myringotomy w Tube(s) GI Surgical History: Reports: Hernia Repair/Other Musculoskeletal Surgical History: Reports: Other (See Below) Other Musculoskeletal Surgeries/Procedures:: surgery left thigh Dermatological Surgical History: Reports: Skin Graft Social & Family History - Family History Family Medical History: Noncontributory - Tobacco Use Smoking Status *Q: Current Every Day Smoker Years of Tobacco use: 25 Packs/Tins Daily: 1 Used Tobacco, but Quit: No Second Hand Smoke Exposure: Yes - Caffeine Use Caffeine Use: Reports: None - Alcohol Use Days Per Week of Alcohol Use: 0 - Recreational Drug Use Recreational Drug Use: Yes Recreational Drug Type: Reports: Marijuana/Hashish Recreational Drug Use Frequency: Daily ED ROS GENERAL - Review of Systems Review Of Systems: See Below Constitutional: Reports: Chills. Denies: Fever HEENT: Reports: Ear Pain. Denies: Ear Discharge Respiratory: Reports: Shortness of Breath Cardiovascular: Reports: Dyspnea on Exertion. Denies: Chest Pain GI/Abdominal: Reports: Nausea, Vomiting. Denies: Abdominal Pain, Constipation, Diarrhea : Reports: No Symptoms Skin: Reports: Wound (Chronic) Neurological: Reports: No Symptoms ED EXAM, GENERAL - Physical Exam Exam: See Below Free Text/Narrative:: General: Male, ill-appearing, alert and oriented x3 HEENT: head is atraumatic normocephalic, eyes pupils equal round reactive to light, sclera clear no conjunctivitis appreciated. Ears tympanic membranes clear and hollingsworth landmarks and light reflex are present bilaterally canals are clear. Nose no septal deviation, nares are clear, no blood present. Mouth mucosa is moist and pink no erythema or exudate noted in soft palate, tongue is midline uvula is midline , dentition is intact. Neck: Supple no thyromegaly no tracheal deviation. Nodes: Cervical nodes subclavicular nodes nontender no palpable lymphadenopathy noted. Lungs: clear to auscultation bilaterally with symmetrical respirations, no adventitious noise appreciated. CV: Regular rate and rhythm S1 and S2 appreciated no murmurs rubs or gallops noted. Abdomen: Soft, nontender, no palpable masses or organomegaly appreciated, no distention no guarding bowel sounds are present, . Neuro: GCS of 15, cranial nerves II through XII intact Skin: Chronic wound appreciated left thigh Extremities: No lower extremity edema appreciated, Course - Vital Signs Last Recorded V/S: Last Vital Signs Temp 99.2 F 07/23/18 08:13 Pulse 68 07/23/18 08:13 Resp 18 07/23/18 08:13 BP 169/91 H 07/23/18 08:13 Pulse Ox 98 07/23/18 08:13 - Orders/Labs/Meds Orders: Active Orders 24 hr Category Date Time Status Peripheral IV Care [RC] . DIRECTED Care 07/23/18 08:24 Active Sodium Chloride 0.9% [Saline Flush] Med 07/23/18 08:22 Active 10 ml FLUSH ASDIRECTED PRN Sodium Chloride 0.9% [Saline Flush] Med 07/23/18 08:22 Active 10 ml FLUSH ASDIRECTED PRN Peripheral IV Insertion Adult [OM.PC] Urgent Oth 07/23/18 08:22 Ordered Medication Orders Sodium Chloride (Saline Flush) 10 ml FLUSH ASDIRECTED PRN PRN Reason: Keep Vein Open Sodium Chloride (Saline Flush) 10 ml FLUSH ASDIRECTED PRN PRN Reason: Keep Vein Open Labs: Laboratory Tests 07/23/18 07/23/18 07/23/18 Range/Units 08:50 08:50 08:50 WBC 6.5 (4.5-11.0) K/uL RBC 5.03 (4.30-5.90) M/uL Hgb 15.0 D (12.0-15.0) g/dL Hct 46.1 (40.0-54.0) % MCV 92 (80-98) fL MCH 30 (27-31) pg MCHC 33 (32-36) % Plt Count 166 (150-400) K/uL Neut % (Auto) 64 (36-66) % Lymph % (Auto) 21 L (24-44) % Barton % (Auto) 11 H (2-6) % Eos % (Auto) 4 (2-4) % Baso % (Auto) 1 (0-1) % Sodium 140 (140-148) mmol/L Potassium 4.8 (3.6-5.2) mmol/L Chloride 105 (100-108) mmol/L Carbon Dioxide 29 (21-32) mmol/L Anion Gap 6.5 (5.0-14.0) mmol/L BUN 15 (7-18) mg/dL Creatinine 1.0 (0.8-1.3) mg/dL Est Cr Clr Drug Dosing 114.17 mL/min Estimated GFR (MDRD) > 60 (>60) Glucose 114 H (74-106) mg/dL Lactic Acid 2.2 H (0.4-2.0) mmol/L Calcium 8.9 (8.5-10.1) mg/dL Total Bilirubin 0.4 D (0.2-1.0) mg/dL AST 22 (15-37) U/L ALT 35 (12-78) U/L Alkaline Phosphatase 66 (46-116) U/L Troponin I < 0.017 (0.000-0.056) ng/mL C-Reactive Protein 0.13 (0.0-0.3) mg/dL Total Protein 7.1 (6.4-8.2) g/dL Albumin 3.3 L (3.4-5.0) g/dL Globulin 3.8 H (2.3-3.5) g/dL Albumin/Globulin Ratio 0.9 L (1.2-2.2) Meds: Medications Generic Name Dose Route Start Last Admin Trade Name Freq PRN Reason Stop Dose Admin Sodium Chloride 10 ml 07/23/18 08:22 Saline Flush FLUSH ASDIRECTED PRN Keep Vein Open Sodium Chloride 10 ml 07/23/18 08:22 Saline Flush FLUSH ASDIRECTED PRN Keep Vein Open Discontinued Medications Generic Name Dose Route Start Last Admin Trade Name Freq PRN Reason Stop Dose Admin Ketorolac Tromethamine 30 mg 07/23/18 08:24 Toradol IVPUSH 07/23/18 08:25 ONETIME ONE Ketorolac Tromethamine 60 mg 07/23/18 08:51 07/23/18 09:16 Toradol IM 07/23/18 08:52 60 mg ONETIME ONE Administration Ondansetron HCl 4 mg 07/23/18 08:24 Zofran IVPUSH 07/23/18 08:25 ONETIME ONE Ondansetron HCl 4 mg 07/23/18 08:51 07/23/18 09:17 Zofran Odt PO 07/23/18 08:52 4 mg ONETIME ONE Administration Departure - Departure Time of Disposition: 10:08 Disposition: Home, Self-Care 01 Condition: Poor Clinical Impression: Schizophrenia Qualifiers: Schizophrenia type: disorganized schizophrenia Qualified Code(s): F20.1 - Disorganized schizophrenia - Discharge Information Referrals: PCP,None [Primary Care Provider] - Forms: ED Department Discharge - My Orders Last 24 Hours: My Active Orders 07/23/18 08:22 Sodium Chloride 0.9% [Saline Flush] 10 ml FLUSH ASDIRECTED PRN Sodium Chloride 0.9% [Saline Flush] 10 ml FLUSH ASDIRECTED PRN Peripheral IV Insertion Adult [OM.PC] Urgent 07/23/18 08:24 Peripheral IV Care [RC] . DIRECTED - Assessment/Plan Last 24 Hours: My Active Orders 07/23/18 08:22 Sodium Chloride 0.9% [Saline Flush] 10 ml FLUSH ASDIRECTED PRN Sodium Chloride 0.9% [Saline Flush] 10 ml FLUSH ASDIRECTED PRN Peripheral IV Insertion Adult [OM.PC] Urgent 07/23/18 08:24 Peripheral IV Care [RC] . DIRECTED Plan: Assessment Acuity = acute Site and laterality = headache Etiology = unclear etiology Manifestations = none Location of injury = Home Lab values = CBC CMP within normal limits CT scan of the head also normal chest x-ray does demonstrate cardiomegaly Plan After I reviewed his lab work and CT scan results with him and informed him that I didn't know what was causing his headache he became very upset continued to insist that he could take his home vacuum and suck bubbles out and feel better and therefore he wanted me to provide for vacuum to perform this. I informed her that I could not provide that service asked that he would follow up with his primary care he declined and said his primary care does not believe him and subsequently walked out the door. I am suspicious for underlying mental illness with schizophrenia poorly controlled This note was dictated using [employer] voice recognition software please call with any questions on syntax or grammar.
[2018-07-23] MEDS ORDERED: Ketorolac 60 MG/2 ML SDV IM ONE (08:51)
[2018-07-23] MEDS ORDERED: Ondansetron 4 MG Tab.DIS PO ONE (08:51)
[2018-07-23 08:59] VITALS: BP 169/91
--- NOTE | 2018-07-23 09:42 | CR ---
CHEST: 2 view CLINICAL HISTORY:SOB COMPARISON:2017 FINDINGS: Heart is enlarged. Pulmonary vascularity is normal. There is a stable dense small nodule in the left upper lobe and some nodularity in the left hilar region. This is likely related to previous granulomatous exposure. No infiltrates are seen. There are no pleural effusions Impression: Cardiomegaly No acute cardiopulmonary process Previous granulomatous exposure
--- NOTE | 2018-07-23 10:04 | CT ---
Head wo Cont CLINICAL HISTORY: Headache COMPARISON: MR brain May 2018 TECHNIQUE: Transverse scans were obtained from the base of the skull through the vertex without IV contrast on a multislice, multidetector CT scanner. Auto dosage reduction and iterative reconstruction techniques employed. FINDINGS: No focal abnormal parenchymal density is identified. There is no mass effect, hemorrhage, or extraaxial collection. The basal cisterns and sulci over the convexities are within normal limits. 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 There is a small septum pellucidum.. The ventricles are normal size. IMPRESSION: Essentially negative CT brain for age
== END 2018-07-23 10:13 | disposition home or self-care (01) ==
LOC: JP.ED 07:43
DX: R51 Headache (principal); F20.1 Disorganized schizophrenia; F17.210 Nicotine dependence, cigarettes, uncomplicated; F31.9 Bipolar disorder, unspecified; F41.9 Anxiety disorder, unspecified; Z79.899 Other long term (current) drug therapy; Z91.030 Bee allergy status; Z88.1 Allergy status to other antibiotic agents
CPT/HCPCS: 36415; 70450; 71046; 80053; 83605; 84484; 85025; 86140; 96372; 99284; A9270; J1885

== ENCOUNTER 2018-08-03 16:57 | Emergency (ER) | payer OTHER, MEDICAID ==
[2018-08-03] MEDS ORDERED: LORazepam 2 MG/ML SDV IM ONE ×2 (17:28→18:32)
[2018-08-03] MEDS ORDERED: Haloperidol Lactate 5 MG/ML SDV IM ONE (17:28)
[2018-08-03] MEDS ORDERED: diphenhydrAMINE 50 MG/ML SDV IM ONE (17:30)
--- NOTE | 2018-08-03 17:31 | EDM.PDOCBH ---
<Huong Gylnn - Last Filed: 08/03/18 20:55> ED HPI GENERAL MEDICAL PROBLEM - General Chief Complaint: Behavioral/Psych Stated Complaint: HEAD PAIN Time Seen by Provider: 08/03/18 17:24 - Related Data Allergies Allergy/AdvReac Type Severity Reaction Status Date / Time venom-honey bee Allergy Severe Airway Verified 08/03/18 17:18 [bee venom (honey bee)] Tightness amoxicillin Allergy Hives Verified 08/03/18 17:18 Home Meds: Home Meds Prazosin [Minpress] 5 mg PO BEDTIME 06/09/16 [History] DULoxetine HCl [Duloxetine HCl] 1 tab PO DAILY 07/23/18 [History] Gabapentin [Neurontin] 300 mg PO BEDTIME 07/23/18 [History] Social & Family History - Family History Psychiatric: Reports: Psych Hospitalization(s) (mother known schizophrenia), Psychosis, Schizophrenia ED EXAM, BEHAVIORAL HEALTH - Physical Exam Eye Exam: Bilateral Eye: EOMI, PERRL Ears: Normal External Exam, Hearing Grossly Normal Nose: Normal Inspection, No Blood Throat/Mouth: Normal Inspection, Normal Lips, Normal Teeth, Normal Gums, Normal Oropharynx, Normal Voice Head: Normocephalic Neck: Normal Inspection, Supple, Non-Tender Respiratory/Chest: No Respiratory Distress, Lungs Clear, Normal Breath Sounds, No Accessory Muscle Use, Chest Non-Tender Cardiovascular: Normal Peripheral Pulses, Regular Rate, Rhythm GI/Abdominal: No Organomegaly (limited due to body habitus), No Distention Back Exam: Normal Inspection, Full Range of Motion, NT Extremities: Normal Inspection, Normal Range of Motion, Non-Tender, Normal Capillary Refill, No Pedal Edema Neurological: CN II-XII Intact, Normal Gait Psychiatric: Restless COURSE, BEHAVIORAL HEALTH COMP - Course Vital Signs: Last Vital Signs Temp 37.3 C 08/03/18 17:09 Pulse 106 H 08/03/18 17:09 Resp BP Pulse Ox 100 08/03/18 17:09 Orders, Labs, Meds: Laboratory Tests 08/03/18 08/03/18 08/03/18 Range/Units 17:03 17:03 17:03 WBC 7.0 (4.5-11.0) K/uL RBC 4.39 (4.30-5.90) M/uL Hgb 13.4 (12.0-15.0) g/dL Hct 40.3 (40.0-54.0) % MCV 92 (80-98) fL MCH 31 (27-31) pg MCHC 33 (32-36) % Plt Count 218 (150-400) K/uL Neut % (Auto) 63 (36-66) % Lymph % (Auto) 23 L (24-44) % Stanley % (Auto) 10 H (2-6) % Eos % (Auto) 3 (2-4) % Baso % (Auto) 1 (0-1) % Sodium 139 L (140-148) mmol/L Potassium 4.4 (3.6-5.2) mmol/L Chloride 104 (100-108) mmol/L Carbon Dioxide 27 (21-32) mmol/L Anion Gap 12.4 (5.0-14.0) mmol/L BUN 20 H (7-18) mg/dL Creatinine 1.0 (0.8-1.3) mg/dL Est Cr Clr Drug Dosing 114.17 mL/min Estimated GFR (MDRD) > 60 (>60) Glucose 111 H (74-106) mg/dL Calcium 9.1 (8.5-10.1) mg/dL Total Bilirubin 0.4 (0.2-1.0) mg/dL AST 23 (15-37) U/L ALT 32 (12-78) U/L Alkaline Phosphatase 64 (46-116) U/L Total Protein 7.3 (6.4-8.2) g/dL Albumin 3.6 (3.4-5.0) g/dL Globulin 3.7 H (2.3-3.5) g/dL Albumin/Globulin Ratio 1.0 L (1.2-2.2) Urine Color Urine Appearance Urine pH (4.5-8.0) Ur Specific Hick[place] (1.008-1.030) Urine Protein (NEGATIVE) mg/dL Urine Glucose (UA) (NEGATIVE) mg/dL Urine Ketones (NEGATIVE) mg/dL Urine Occult Blood (NEGATIVE) Urine Nitrite (NEGAITVE) Urine Bilirubin (NEGATIVE) Urine Urobilinogen (NORMAL) mg/dL Ur Leukocyte Esterase (NEGATIVE) Urine RBC (0-5) Urine WBC (0-5) Ur Epithelial Cells Amorphous Sediment Urine Bacteria Urine Mucus Urine Opiates Screen (NEGATIVE) Ur Oxycodone Screen (NEGATIVE) Urine Methadone Screen (NEGATIVE) Ur Propoxyphene Screen (NEGATIVE) Ur Barbiturates Screen (NEGATIVE) Ur Tricyclics Screen (NEGATIVE) Ur Phencyclidine Scrn (NEGATIVE) Ur Amphetamine Screen (NEGATIVE) U Methamphetamines Scrn (NEGATIVE) Urine MDMA Screen (NEGATIVE) U Benzodiazepines Scrn (NEGATIVE) U Cocaine Metab Screen (NEGATIVE) U Marijuana (THC) Screen (NEGATIVE) Ethyl Alcohol < 3 mg/dL 08/04/18 08/04/18 Range/Units 02:35 02:35 WBC (4.5-11.0) K/uL RBC (4.30-5.90) M/uL Hgb (12.0-15.0) g/dL Hct (40.0-54.0) % MCV (80-98) fL MCH (27-31) pg MCHC (32-36) % Plt Count (150-400) K/uL Neut % (Auto) (36-66) % Lymph % (Auto) (24-44) % Stanley % (Auto) (2-6) % Eos % (Auto) (2-4) % Baso % (Auto) (0-1) % Sodium (140-148) mmol/L Potassium (3.6-5.2) mmol/L Chloride (100-108) mmol/L Carbon Dioxide (21-32) mmol/L Anion Gap (5.0-14.0) mmol/L BUN (7-18) mg/dL Creatinine (0.8-1.3) mg/dL Est Cr Clr Drug Dosing mL/min Estimated GFR (MDRD) (>60) Glucose (74-106) mg/dL Calcium (8.5-10.1) mg/dL Total Bilirubin (0.2-1.0) mg/dL AST (15-37) U/L ALT (12-78) U/L Alkaline Phosphatase (46-116) U/L Total Protein (6.4-8.2) g/dL Albumin (3.4-5.0) g/dL Globulin (2.3-3.5) g/dL Albumin/Globulin Ratio (1.2-2.2) Urine Color Yellow Urine Appearance Clear Urine pH 7.0 (4.5-8.0) Ur Specific H[place] 1.010 (1.008-1.030) Urine Protein Negative (NEGATIVE) mg/dL Urine Glucose (UA) Normal (NEGATIVE) mg/dL Urine Ketones Negative (NEGATIVE) mg/dL Urine Occult Blood Negative (NEGATIVE) Urine Nitrite Negative (NEGAITVE) Urine Bilirubin Negative (NEGATIVE) Urine Urobilinogen Normal (NORMAL) mg/dL Ur Leukocyte Esterase Negative (NEGATIVE) Urine RBC 0-5 (0-5) Urine WBC 0-5 (0-5) Ur Epithelial Cells Rare Amorphous Sediment Not seen Urine Bacteria Rare Urine Mucus Not seen Urine Opiates Screen Negative (NEGATIVE) Ur Oxycodone Screen Negative (NEGATIVE) Urine Methadone Screen Negative (NEGATIVE) Ur Propoxyphene Screen Negative (NEGATIVE) Ur Barbiturates Screen Negative (NEGATIVE) Ur Tricyclics Screen Negative (NEGATIVE) Ur Phencyclidine Scrn Negative (NEGATIVE) Ur Amphetamine Screen Presumptive positive H (NEGATIVE) U Methamphetamines Scrn Presumptive positive H (NEGATIVE) Urine MDMA Screen Negative (NEGATIVE) U Benzodiazepines Scrn Presumptive positive H (NEGATIVE) U Cocaine Metab Screen Negative (NEGATIVE) U Marijuana (THC) Screen Presumptive positive H (NEGATIVE) Ethyl Alcohol mg/dL Medications Discontinued Medications Generic Name Dose Route Start Last Admin Trade Name Freq PRN Reason Stop Dose Admin Diphenhydramine HCl 50 mg 08/03/18 17:30 08/03/18 17:45 Benadryl IM 08/03/18 17:31 50 mg ONETIME ONE Administration Haloperidol Lactate 5 mg 08/03/18 17:28 08/03/18 17:46 Haldol IM 08/03/18 17:29 5 mg ONETIME ONE Administration Lorazepam 2 mg 08/03/18 17:28 08/03/18 17:45 Ativan IM 08/03/18 17:29 2 mg ONETIME ONE Administration Lorazepam 1 mg 08/03/18 18:32 08/03/18 18:40 Ativan IM 08/03/18 18:33 1 mg ONETIME ONE Administration Re-Assessment/Re-Exam: Patient attempted to walk out of the department while was gone. Police returned him to the ER, patient was again agitated repeat dose of Ativan given. Patient is now resting comfortably with at bedside. Blood tests reviewed: No acute concerns to explain acute psychosis. Patient placed on a 72 hour hold. Need Urine and waiting to discuss placement. Departure - Departure Disposition: Home, Self-Care 01 Clinical Impression: Hallucinations Schizophrenia Qualifiers: Schizophrenia type: disorganized schizophrenia Qualified Code(s): F20.1 - Disorganized schizophrenia - Discharge Information Instructions: Schizophrenia, Supporting Someone With Schizophrenia, Living With Schizophrenia Referrals: PCP,None [Primary Care Provider] - Forms: ED Department Discharge Care Plan Goals: Continue your current prescribed medications, avoid any other illicit drugs or alcohol and recheck next week with your regular provider. Return sooner if symptoms redevelop or you have other emergent concerns. - Problem List & Annotations (1) Acute psychosis SNOMED Code(s): 30752079, 83982478 Code(s): F23 - BRIEF PSYCHOTIC DISORDER Status: Acute (2) FHx: schizophrenia SNOMED Code(s): 992504632 Code(s): Z81.8 - FAMILY HISTORY OF OTHER MENTAL AND BEHAVIORAL DISORDERS Status: Acute (3) Schizophrenia SNOMED Code(s): 68442064 Code(s): F20.9 - SCHIZOPHRENIA, UNSPECIFIED Status: Acute Qualifiers: Schizophrenia type: disorganized schizophrenia Qualified Code(s): F20.1 - Disorganized schizophrenia <Carlos Faust - Last Filed: 08/04/18 09:07> COURSE, BEHAVIORAL HEALTH COMP - Course Re-Assessment/Re-Exam: Patient care was transferred while awaiting psychiatric evaluation and placement on a 72 hour hold. However the patient woke up this morning and apparently the methamphetamine has worn off and is now thinking clearly, is not suicidal and wants to go home. I did have his come in and talk to him who works in the psychiatric department at the clinic and she is comfortable with him going home. The 72 hour hold placed yesterday was rescinded. Departure - Departure Time of Disposition: 09:05 <Amelia Hyman - Last Filed: 08/07/18 18:16> ED HPI GENERAL MEDICAL PROBLEM - General Source of Information: Reports: Patient, Family History Limitations: Reports: No Limitations - History of Present Illness INITIAL COMMENTS - FREE TEXT/NARRATIVE: pt was found lying on the floor in the waiting room. He stated that his whole body is melting. He is not able to give a urine. Pt has had a history of recurrent staph infection and he did just finish a course of antibiotic. He Has a large area on the outside of his left leg. He has slight redness at the upper part of the wound, He normally sees [facility] and we did get her on the line. She feels like he is having a major psychotic break. We talked about using a b52 and she agreed with that. Onset: Gradual, Other ( There was a sudden change today. ) Duration: Hour(s): Location: Reports: Generalized Associated Symptoms: Reports: Confusion, Other (Pt is very agitatedand truly beliweves he is melting away and is dying. ) Past Medical History HEENT History: Reports: Otitis Media, Other (See Below) Other HEENT History: metal in eye in past Musculoskeletal History: Reports: Fracture, Other (See Below) Other Musculoskeletal History: ankle problem AND FEMUR FRACTURE Psychiatric History: Reports: Anxiety, Bipolar, Depression, PTSD, Schizophrenia Endocrine/Metabolic History: Reports: Obesity/BMI 30+ Hematologic History: Reports: Blood Transfusion(s) Dermatologic History: Reports: Other (See Below) Other Dermatologic History: OPEN WOUND LEFT THIGH repaired with skin grafting on 07/28/2016. - Infectious Disease History Infectious Disease History: Reports: Chicken Pox - Past Surgical History HEENT Surgical History: Reports: Myringotomy w Tube(s) GI Surgical History: Reports: Hernia Repair/Other Musculoskeletal Surgical History: Reports: Other (See Below) Other Musculoskeletal Surgeries/Procedures:: surgery left thigh Dermatological Surgical History: Reports: Skin Graft Social & Family History - Family History Family Medical History: Noncontributory - Caffeine Use Caffeine Use: Reports: None ED ROS GENERAL - Review of Systems Review Of Systems: See Below Constitutional: Reports: No Symptoms HEENT: Reports: No Symptoms Respiratory: Reports: No Symptoms Cardiovascular: Reports: No Symptoms Endocrine: Reports: No Symptoms GI/Abdominal: Reports: No Symptoms : Reports: No Symptoms Musculoskeletal: Reports: No Symptoms Skin: Reports: No Symptoms Neurological: Reports: Confusion Psychiatric: Reports: Agitation, Confusion, Other (pt appears to be completely pyschotic. and out of control. His is here and she feels he has had a complete break. She agrees with inpt care. ) ED EXAM, BEHAVIORAL HEALTH - Physical Exam Exam: See Below Text/Narrative:: pt is very agitated and out of control he is thinking his body is melting away. He has not been taking his nite time meds for about 3 weeks. He has had multiple very serious staph infections. Pt did just finish a course of bactrim. He has no fever at this time. Exam Limited By: Altered Mental Status General Appearance: Alert, Anxious, Other (hallucinating. ) Ears: Normal TMs Nose: Normal Inspection Throat/Mouth: Normal Inspection Head: Atraumatic Neck: Normal Inspection Respiratory/Chest: No Respiratory Distress Cardiovascular: Regular Rate, Rhythm GI/Abdominal: Soft, Non-Tender (Male) Exam: Deferred Rectal (Males) Exam: Deferred Back Exam: Normal Inspection Extremities: Other (pt has edema in both legs this is not new. He has a very large old wound from a staph infection on the outside of the left upper leg. Dr León has been following that. ) Neurological: Alert, Disoriented to Time Psychiatric: Alert, Agitated, Inattentive, Grandiose Thoughts, Paranoid Thoughts COURSE, BEHAVIORAL HEALTH COMP - Course Medical Clearance: 08/03/18 17:50 pt was given a B52 and he has calmed down alot.He will have labs drawn and later will attempt to get a urine.
== END 2018-08-04 09:14 | disposition home or self-care (01) ==
LOC: JP.ED 16:57
DX: F20.1 Disorganized schizophrenia (principal); E66.9 Obesity, unspecified; Z96.22 Myringotomy tube(s) status; Z88.1 Allergy status to other antibiotic agents; Z91.030 Bee allergy status; Z81.8 Family history of other mental and behavioral disorders
CPT/HCPCS: 36415; 80053; 80305; 81001; 85025; 96372; 99283; G0480; J1200; J1630; J2060

== ENCOUNTER 2019-02-03 03:10 | Emergency (ER) | payer OTHER, MEDICAID ==
[2019-02-03 03:22] VITALS: BP 166/110; PULSE 89
[2019-02-03] MEDS ORDERED: Sodium Chloride 0.9% 10 ML Syringe FLUSH PRN (03:36)
[2019-02-03] MEDS ORDERED: fentaNYL 100 MCG/2 ML SDV IVPUSH ONE (03:38)
--- NOTE | 2019-02-03 03:39 | EDM.PDOC ---
ED HPI GENERAL MEDICAL PROBLEM - General Chief Complaint: Abdominal Pain Stated Complaint: ABD PAIN Time Seen by Provider: 02/03/19 03:34 Source of Information: Reports: Patient, RN Notes Reviewed History Limitations: Reports: No Limitations - History of Present Illness INITIAL COMMENTS - FREE TEXT/NARRATIVE: 39-year-old gentleman presents emergency department the complaint of abdominal pain, the pain started about 8 hours prior he has had some loose stools no fevers no nausea vomiting pain is predominantly in the epigastric region past surgical history of hernia Upper Abdomen Pain Score (Numeric/FACES): 9 - Related Data Allergies Allergy/AdvReac Type Severity Reaction Status Date / Time venom-honey bee Allergy Severe Airway Verified 02/03/19 03:22 [bee venom (honey bee)] Tightness amoxicillin Allergy Hives Verified 02/03/19 03:22 Home Meds: Home Meds Prazosin [Minpress] 5 mg PO BEDTIME 06/09/16 [History] DULoxetine HCl [Duloxetine HCl] 1 tab PO DAILY 07/23/18 [History] Gabapentin [Neurontin] 300 mg PO BEDTIME 07/23/18 [History] Haloperidol [Haldol] 1 mg PO BEDTIME 02/03/19 [History] Past Medical History HEENT History: Reports: Otitis Media, Other (See Below) Other HEENT History: metal in eye in past Musculoskeletal History: Reports: Fracture, Other (See Below) Other Musculoskeletal History: ankle problem AND FEMUR FRACTURE Psychiatric History: Reports: Anxiety, Bipolar, Depression, PTSD, Schizophrenia Endocrine/Metabolic History: Reports: Obesity/BMI 30+ Hematologic History: Reports: Blood Transfusion(s) Dermatologic History: Reports: Other (See Below) Other Dermatologic History: OPEN WOUND LEFT THIGH repaired with skin grafting on 07/28/2016. - Infectious Disease History Infectious Disease History: Reports: Chicken Pox - Past Surgical History HEENT Surgical History: Reports: Myringotomy w Tube(s) GI Surgical History: Reports: Hernia Repair/Other Musculoskeletal Surgical History: Reports: Other (See Below) Other Musculoskeletal Surgeries/Procedures:: surgery left thigh Dermatological Surgical History: Reports: Skin Graft Social & Family History - Family History Family Medical History: Noncontributory Psychiatric: Reports: Psych Hospitalization(s) (mother known schizophrenia), Psychosis, Schizophrenia - Tobacco Use Smoking Status *Q: Current Every Day Smoker Years of Tobacco use: 25 Packs/Tins Daily: 1 Used Tobacco, but Quit: No - Caffeine Use Caffeine Use: Reports: None - Recreational Drug Use Recreational Drug Use: Yes Recreational Drug Type: Reports: Marijuana/Hashish ED ROS GENERAL - Review of Systems Review Of Systems: See Below Constitutional: Denies: Fever, Chills HEENT: Reports: No Symptoms Respiratory: Reports: No Symptoms Cardiovascular: Reports: No Symptoms GI/Abdominal: Reports: Abdominal Pain, Diarrhea, Flatus. Denies: Nausea, Vomiting : Reports: No Symptoms Musculoskeletal: Reports: No Symptoms Skin: Reports: No Symptoms Neurological: Reports: No Symptoms ED EXAM, GI/ABD - Physical Exam Exam: See Below Exam Limited By: No Limitations General Appearance: Alert, WD/WN, No Apparent Distress Respiratory/Chest: No Respiratory Distress, Lungs Clear, Normal Breath Sounds, No Accessory Muscle Use, Chest Non-Tender Cardiovascular: Regular Rate, Rhythm, No Murmur GI/Abdominal Exam: Normal Bowel Sounds, Soft, No Organomegaly, No Distention, Tender (Epigastric region) Course - Vital Signs Last Recorded V/S: Last Vital Signs Temp 99.3 F 02/03/19 03:20 Pulse 89 02/03/19 03:20 Resp BP 166/110 H 02/03/19 03:20 Pulse Ox 98 02/03/19 03:20 - Orders/Labs/Meds Orders: Active Orders 24 hr Category Date Time Status Peripheral IV Care [RC] . DIRECTED Care 02/03/19 03:37 Active Lactated Ringers [Ringers, Lactated] 1,000 ml Med 02/03/19 03:45 Active IV ASDIRECTED Sodium Chloride 0.9% [Saline Flush] Med 02/03/19 03:36 Active 10 ml FLUSH ASDIRECTED PRN Peripheral IV Insertion Adult [OM.PC] Urgent Oth 02/03/19 03:36 Ordered Medication Orders Lactated Ringer's (Ringers, Lactated) 1,000 mls @ 999 mls/hr IV ASDIRECTED MUNDO Sodium Chloride (Saline Flush) 10 ml FLUSH ASDIRECTED PRN PRN Reason: Keep Vein Open Labs: Laboratory Tests 02/03/19 02/03/19 02/03/19 Range/Units 03:36 03:36 03:36 WBC 7.5 (4.5-11.0) K/uL RBC 4.37 (4.30-5.90) M/uL Hgb 13.6 (12.0-15.0) g/dL Hct 40.8 (40.0-54.0) % MCV 93 (80-98) fL MCH 31 (27-31) pg MCHC 33 (32-36) % Plt Count (150-400) K/uL Neut % (Auto) 61 (36-66) % Lymph % (Auto) 26 (24-44) % Rogers % (Auto) 9 H (2-6) % Eos % (Auto) 4 (2-4) % Baso % (Auto) 1 (0-1) % Sodium 139 L (140-148) mmol/L Potassium 4.8 (3.6-5.2) mmol/L Chloride 107 (100-108) mmol/L Carbon Dioxide 19 L (21-32) mmol/L Anion Gap 17.8 H (5.0-14.0) mmol/L BUN 16 (7-18) mg/dL Creatinine 0.9 (0.8-1.3) mg/dL Est Cr Clr Drug Dosing 125.58 mL/min Estimated GFR (MDRD) > 60 (>60) Glucose 173 H (74-106) mg/dL Lactic Acid 2.3 H (0.4-2.0) mmol/L Calcium 8.0 L (8.5-10.1) mg/dL Total Bilirubin 0.3 (0.2-1.0) mg/dL AST 84 H D (15-37) U/L ALT 131 H (12-78) U/L Alkaline Phosphatase 65 (46-116) U/L Troponin I < 0.017 (0.000-0.056) ng/mL Total Protein 6.6 (6.4-8.2) g/dL Albumin 3.0 L (3.4-5.0) g/dL Globulin 3.6 H (2.3-3.5) g/dL Albumin/Globulin Ratio 0.8 L (1.2-2.2) Lipase 70 L (73-393) U/L Urine Color (YELLOW) Urine Appearance (CLEAR) Urine pH (5.0-8.0) Ur Specific Lyndon (1.008-1.030) Urine Protein (NEGATIVE) mg/dL Urine Glucose (UA) (NEGATIVE) mg/dL Urine Ketones (NEGATIVE) mg/dL Urine Occult Blood (NEGATIVE) Urine Nitrite (NEGATIVE) Urine Bilirubin (NEGATIVE) Urine Urobilinogen (0.2-1.0) EU/dL Ur Leukocyte Esterase (NEGATIVE) Urine RBC (0-5) Urine WBC (0-5) Ur Epithelial Cells Amorphous Sediment Urine Bacteria Urine Mucus 02/03/19 Range/Units 06:26 WBC (4.5-11.0) K/uL RBC (4.30-5.90) M/uL Hgb (12.0-15.0) g/dL Hct (40.0-54.0) % MCV (80-98) fL MCH (27-31) pg MCHC (32-36) % Plt Count (150-400) K/uL Neut % (Auto) (36-66) % Lymph % (Auto) (24-44) % Rogers % (Auto) (2-6) % Eos % (Auto) (2-4) % Baso % (Auto) (0-1) % Sodium (140-148) mmol/L Potassium (3.6-5.2) mmol/L Chloride (100-108) mmol/L Carbon Dioxide (21-32) mmol/L Anion Gap (5.0-14.0) mmol/L BUN (7-18) mg/dL Creatinine (0.8-1.3) mg/dL Est Cr Clr Drug Dosing mL/min Estimated GFR (MDRD) (>60) Glucose (74-106) mg/dL Lactic Acid (0.4-2.0) mmol/L Calcium (8.5-10.1) mg/dL Total Bilirubin (0.2-1.0) mg/dL AST (15-37) U/L ALT (12-78) U/L Alkaline Phosphatase (46-116) U/L Troponin I (0.000-0.056) ng/mL Total Protein (6.4-8.2) g/dL Albumin (3.4-5.0) g/dL Globulin (2.3-3.5) g/dL Albumin/Globulin Ratio (1.2-2.2) Lipase (73-393) U/L Urine Color Yellow (YELLOW) Urine Appearance Clear (CLEAR) Urine pH 5.5 (5.0-8.0) Ur Specific Lyndon 1.015 (1.008-1.030) Urine Protein Negative (NEGATIVE) mg/dL Urine Glucose (UA) Negative (NEGATIVE) mg/dL Urine Ketones Negative (NEGATIVE) mg/dL Urine Occult Blood Negative (NEGATIVE) Urine Nitrite Negative (NEGATIVE) Urine Bilirubin Negative (NEGATIVE) Urine Urobilinogen 0.2 (0.2-1.0) EU/dL Ur Leukocyte Esterase Negative (NEGATIVE) Urine RBC 0-5 (0-5) Urine WBC 0-5 (0-5) Ur Epithelial Cells Few Amorphous Sediment Not seen Urine Bacteria Few Urine Mucus Not seen Meds: Medications Generic Name Dose Route Start Last Admin Trade Name Freq PRN Reason Stop Dose Admin Lactated Ringer's 1,000 mls @ 999 mls/hr 02/03/19 03:45 Ringers, Lactated IV ASDIRECTED MUNDO Sodium Chloride 10 ml 02/03/19 03:36 Saline Flush FLUSH ASDIRECTED PRN Keep Vein Open Discontinued Medications Generic Name Dose Route Start Last Admin Trade Name Freq PRN Reason Stop Dose Admin Fentanyl 50 mcg 02/03/19 03:38 Sublimaze IVPUSH 02/03/19 03:39 ONETIME ONE Fentanyl Confirm 02/03/19 05:14 Sublimaze Administered 02/03/19 05:15 Dose 100 mcg .ROUTE .STK-MED ONE Departure - Departure Time of Disposition: 07:03 Disposition: Home, Self-Care 01 Condition: Fair Clinical Impression: Cholelithiasis Qualifiers: Cholelithiasis location: gallbladder Cholecystitis presence: without cholecystitis Biliary obstruction: without biliary obstruction Qualified Code(s) : K80.20 - Calculus of gallbladder without cholecystitis without obstruction - Discharge Information Referrals: Valencia Dinh PA-C [Primary Care Provider] - Forms: ED Department Discharge Additional Instructions: Follow-up with your surgeon this week for further evaluation, call return to the emergency department for worsening of symptoms - My Orders Last 24 Hours: My Active Orders 02/03/19 03:36 Sodium Chloride 0.9% [Saline Flush] 10 ml FLUSH ASDIRECTED PRN Peripheral IV Insertion Adult [OM.PC] Urgent 02/03/19 03:37 Peripheral IV Care [RC] . DIRECTED 02/03/19 03:45 Lactated Ringers [Ringers, Lactated] 1,000 ml IV ASDIRECTED - Assessment/Plan Last 24 Hours: My Active Orders 02/03/19 03:36 Sodium Chloride 0.9% [Saline Flush] 10 ml FLUSH ASDIRECTED PRN Peripheral IV Insertion Adult [OM.PC] Urgent 02/03/19 03:37 Peripheral IV Care [RC] . DIRECTED 02/03/19 03:45 Lactated Ringers [Ringers, Lactated] 1,000 ml IV ASDIRECTED Plan: Assessment Acuity = acute Site and laterality = epigastric abdominal pain complicating the patient with known history of cholelithiasis Etiology = probably related to exacerbation of cholelithiasis Manifestations = none Location of injury = Home Lab values = CBC unremarkable lactic acid slightly elevated 2.3 consider lactic acidosis AST elevated 84 ALT elevated 131 consistent elevated liver enzymes remainder CMP unremarkable troponin was negative urinalysis negative CT scan describes cholelithiasis above Plan Good improvement with fentanyl provided in the ED he did admit to eating a fatty meal just prior which may have exacerbated his problem he is working with the surgeon to have a cholecystectomy however he currently has a staph infection and they have been waiting for that to heal up before proceeding with any operation. Of asked him to continue to work with his surgeon and follow-up with him next week This note was dictated using [email or web address] voice recognition software please call with any questions on syntax or grammar.
[2019-02-03] MEDS ORDERED: Lactated Ringers 1,000 ML IV SCH (03:45)
[2019-02-03] MEDS ORDERED: fentaNYL 100 MCG/2 ML SDV ONE (05:14)
--- NOTE | 2019-02-03 06:48 | CRLCT ---
INDICATION: Epigastric pain. COMPARISON: 11/09/2018 TECHNIQUE: CT examination of the abdomen and pelvis was performed with the uneventful intravenous administration of 150 cc of Isovue-300 while 3 mm thick axial sections were obtained from the lung bases through the pubic symphysis. Oral contrast was not administered. Please note that all CT scans at this facility use dose modulation, iterative reconstruction, and/or weight-based dosing when appropriate to reduce radiation dose to as low as reasonably achievable. FINDINGS: In the abdomen, the liver remains mildly enlarged, measuring 22.0 centimeters in length, previously 20.7 centimeters, with no sign of any mass or fatty infiltration The spleen remains mildly enlarged, measuring 15.5 centimeters in length, previously 14.7 centimeters. The pancreas and adrenals are normal in appearance. The kidneys are normal in appearance. A few small noncalcified calculi are again seen in the dependent portion of the gallbladder. The gallbladder is otherwise normal in appearance. The abdominal aorta is normal in caliber with no sign of dilatation. There is no sign of retroperitoneal mass or adenopathy. The stomach, loops of small bowel, and colon in the abdomen are normal in appearance. In the pelvis, the appendix is normal in appearance with no sign of inflammatory process. The loops of small bowel and colon in the pelvis are normal in appearance. The prostate is normal in appearance. The urinary bladder is normal in appearance. There is no sign of pelvic or inguinal mass or adenopathy. The lung bases are clear. Again seen is mild L4-5 and L5-S1 disc degenerative disease. IMPRESSION: CT of the abdomen shows no change in mild hepatosplenomegaly of uncertain etiology. Again seen is cholelithiasis without evidence of acute cholecystitis. Normal CT of the pelvis with contrast. Please note that all CT scans at this facility use dose modulation, iterative reconstruction, and/or weight-based dosing when appropriate to reduce radiation dose to as low as reasonably achievable. Dictated by Pineda Barrios MD @ Feb 03 2019 6:40AM Signed by Dr. Pineda Barrios @ Feb 03 2019 6:47AM
== END 2019-02-03 07:35 | disposition home or self-care (01) ==
LOC: JP.ED 03:10
DX: K80.20 Calculus of gallbladder without cholecystitis without obstruction (principal); E66.9 Obesity, unspecified; F32.9 Major depressive disorder, single episode, unspecified; F17.210 Nicotine dependence, cigarettes, uncomplicated; Z68.42 Body mass index [BMI] 45.0-49.9, adult; Z88.0 Allergy status to penicillin; Z91.030 Bee allergy status; Z79.899 Other long term (current) drug therapy
CPT/HCPCS: 36415; 74177; 80053; 81001; 83605; 83690; 84484; 85025; 99284-25

== ENCOUNTER 2019-09-13 06:05 | Day surgery (SDC) | payer OTHER, MEDICAID ==
[2019-09-13] MEDS ORDERED: Dextrose 5%-Lactated Ringers 1,000 ML IV SCH ×2 (06:30→10:15)
[2019-09-13] MEDS ORDERED: Acetaminophen 500 MG Tab PO ONE (06:30)
[2019-09-13] MEDS ORDERED: Bupivacaine 0.5%/EPINEPHrine 1:200,000 50 ML MDV ONE (06:33)
[2019-09-13] MEDS ORDERED: Albuterol/Ipratropium 3.0-0.5 MG/3 ML Neb Soln NEB ONE (07:00)
[2019-09-13] MEDS ORDERED: Propofol 200 MG/20 ML SDV ONE ×2 (07:09→07:44)
[2019-09-13] MEDS ORDERED: Rocuronium 50 MG/5 ML Vial ONE (07:09)
[2019-09-13] MEDS ORDERED: Dexamethasone 4 MG/ML SDV ONE (07:09)
[2019-09-13] MEDS ORDERED: Neostigmine Methylsulfate 1 MG/ML 5 ML Syringe ONE (07:09)
[2019-09-13] MEDS ORDERED: Ondansetron 4 MG/2 ML SDV ONE (07:09)
[2019-09-13] MEDS ORDERED: Glycopyrrolate 0.2 MG/ML 5 ML MDV ONE (07:09)
[2019-09-13] MEDS ORDERED: Succinylcholine 200 MG/10 ML MDV ONE (07:09)
[2019-09-13] MEDS ORDERED: fentaNYL 250 MCG/5 ML SDV ONE ×2 (07:10→07:49)
[2019-09-13] MEDS: cefOXitin 2 GM in Sodium Chloride 0.9% 50 ML IV ONE ×2 (07:19→10:16)
[2019-09-13] MEDS ORDERED: Acetaminophen/oxyCODONE 325-5 MG Tab PO PRN (10:12)
[2019-09-13] MEDS ORDERED: Ondansetron 4 MG/2 ML SDV IVPUSH PRN (11:00)
[2019-09-13] MEDS ORDERED: Pantoprazole 40 MG Vial IVPUSH SCH (12:00)
[2019-09-13 12:51] VITALS: BP 111/81; PULSE 75
--- NOTE | 2019-09-17 15:07 | OR ---
DATE OF PROCEDURE: 09/13/2019 SURGEON: Raghu Arellano MD PREOPERATIVE DIAGNOSIS: Chronic cholecystitis and cholelithiasis. POSTOPERATIVE DIAGNOSIS: Chronic cholecystitis and cholelithiasis. OPERATIVE PROCEDURE: Laparoscopic cholecystectomy (64656). ANESTHESIA: General. INDICATION FOR PROCEDURE: This is a 39-year-old male presenting with ongoing episodes of right upper quadrant pain. Workup over the past several months included a CT scan, which showed some cholelithiasis, as well as a HIDA scan showing a below normal ejection fraction. The plan is to proceed with a laparoscopic cholecystectomy at this time. Potential risks including bleeding, infection, injury to common bile duct, migration of stones in the common bile duct requiring additional procedures for correction as well as the remote possibility of cardiopulmonary, septic, or hemorrhagic complications leading to were all discussed, and the patient wishes to proceed. DETAILS OF PROCEDURE: The patient was taken to the operating room, and after general endotracheal anesthesia was induced, the abdomen was then prepped and draped. Just to the right of the umbilicus, a transverse incision was made and peritoneal cavity entered under direct vision with an Optiview trocar and inflated to 15 mmHg pressure with CO2. Laparoscope was reinserted. No underlying trocar insertion site injuries were seen. Following this, a 12 mm epigastric trocar and a 5 mm right subcostal trocar were placed and the gallbladder retracted laterally and anteriorly. Despite the patient's fairly marked obesity, there was good visualization of the area of cystohepatic triangle. Dissection began on the gallbladder neck with Harmonic scalpel and continued around the gallbladder neck and cystic duct junction. Once that area was well delineated along with the adjacent cystic artery, the cystic duct was eventually taken with EDELMIRA berger load due to its thickness and friability and the artery taken with clips, three times proximally and one distally. The gallbladder was then dissected off the gallbladder bed using Harmonic scalpel. During the course of the dissection, one additional arterial branch was encountered, which was clipped 3 times proximally and divided with Harmonic scalpel distally and the gallbladder dissection continued with removal of the gallbladder through the upper midline port. He was noted to have some cholelithiasis present. At this point, no further problems noted. A drain was felt not to be necessary. The 12 mm trocar sites were then closed at the fascia level with 0 Vicryl stitch and the skin with 4-0 Vicryl subcuticular stitch. Prior to closure, bilateral subcostal transversus abdominis plane blocks were placed and the wounds were anesthetized with 1% lidocaine mixed with Marcaine as well. The patient was taken to the recovery room in satisfactory condition. Raghu Arellano MD /[id number] MTDD
== END 2019-09-13 14:30 | disposition home or self-care (01) ==
LOC: JP.SDSSCHI 06:05 → JP.SDS 06:05 → UNDOADMIN 06:05 → EDSTATUS 07:15 → JP.MS 08:35 → JP.SDSSCHI 08:35 → JP.MS 10:07 → UNDODISIN 14:30 → JP.SDS 14:30
PROVIDERS: ATTEND Surgery
DX: K80.10 Calculus of gallbladder with chronic cholecystitis without obstruction (principal); I25.10 Atherosclerotic heart disease of native coronary artery without angina pectoris; I10 Essential (primary) hypertension; I71.2 Thoracic aortic aneurysm, without rupture; E66.9 Obesity, unspecified; F90.9 Attention-deficit hyperactivity disorder, unspecified type; F41.1 Generalized anxiety disorder; F32.9 Major depressive disorder, single episode, unspecified; E78.2 Mixed hyperlipidemia; F17.210 Nicotine dependence, cigarettes, uncomplicated; G62.9 Polyneuropathy, unspecified; Z88.0 Allergy status to penicillin; Z91.030 Bee allergy status; Z68.43 Body mass index [BMI] 50.0-59.9, adult; Z79.82 Long term (current) use of aspirin; Z79.899 Other long term (current) drug therapy
CPT/HCPCS: 36415; 47562; 80053; 83735; 83880; 84100; 85025; 88304; 94640; A9270; C9113; J0171; J0330; J0694; J1100; J2704; J2710; J2795; J3010; J3490; J7050; J7121; J2405; J7620-GY

== ENCOUNTER 2021-06-26 11:23 | Emergency (ER) | payer OTHER, MEDICARE, MEDICAID ==
[2021-06-26] MEDS ORDERED: HYDROmorphone 0.5 MG/0.5 ML Syringe IVPUSH ONE (11:55)
[2021-06-26] MEDS ORDERED: HYDROmorphone 1 MG/ML Syringe IVPUSH ONE ×2 (11:59→12:35)
[2021-06-26] MEDS ORDERED: Ondansetron 4 MG/2 ML SDV IVPUSH ONE (12:00)
[2021-06-26] MEDS ORDERED: Sodium Chloride 0.9% 1,000 ML IV SCH (12:15)
[2021-06-26] MEDS ORDERED: Ketorolac 30 MG/ML SDV IVPUSH ONE (12:48)
[2021-06-26 13:03] VITALS: BP 134/73; PULSE 77
== END 2021-06-26 14:03 | disposition home or self-care (01) ==
LOC: JP.ED 11:23
DX: R10.31 Right lower quadrant pain (principal); I10 Essential (primary) hypertension; E66.9 Obesity, unspecified; Z68.42 Body mass index [BMI] 45.0-49.9, adult; Z72.0 Tobacco use; Z88.0 Allergy status to penicillin; Z91.030 Bee allergy status
CPT/HCPCS: 36415; 74176; 80053; 83605; 85027; 86140; 96374; 96375; 96376; 99283; 99284-25; J1170; J1885; J2405; J7030

== ENCOUNTER 2025-02-19 18:09 | Emergency (ER) | payer MEDICARE, OTHER ==
[2025-02-19 19:00] LABS: BASOPHILS ABSOLUTE AUTO 0.05 K/uL (0.00-0.10); BASOPHILS PERCENT AUTO 0.5 % (0.1-1.3); EOSINOPHILS ABSOLUTE AUTO 0.18 K/uL (0.00-0.40); EOSINOPHILS PERCENT AUTO 1.9 % (0.0-5.4); IMMATURE GRAN ABSOLUTE AUTO 0.04 K/uL (0.00-0.23); IMMATURE GRAN PERCENT AUTO 0.4 % (0.0-0.7); LYMPHOCYTES ABSOLUTE AUTO 1.69 K/uL (0.8-3.3); LYMPHOCYTES PERCENT AUTO 17.9 % (11.4-47.7); MONOCYTES ABSOLUTE AUTO 1.08 K/uL (0.20-0.90); MONOCYTES PERCENT AUTO 11.4 % (3.3-12.6); NEUTROPHILS ABSOLUTE AUTO 6.41 K/uL (1.0-7.6); NEUTROPHILS PERCENT AUTO 67.9 % (40.0-78.1); PLATELET COUNT,PLT 132 K/uL (130-375); RED BLOOD CELL COUNT 4.38 M/uL (4.14-5.76); WHITE BLOOD CELL COUNT,WBC 9.5 K/uL (3.2-11.0)
[2025-02-19 19:36] VITALS: BP 141/64; PULSE 88
[2025-02-19 20:45] LABS: A/G RATIO 0.8 (1.2-2.2); ALANINE AMINOTRANSFERASE,ALT 42 U/L (12-78); ASPARTATE AMNIOTRANSFERASE,AST 20 U/L (15-37); BILIRUBIN TOTAL 0.5 mg/dL (0.2-1.0); BLOOD UREA NITROGEN,BUN 19 mg/dL (7-18); CARBON DIOXIDE,CO2 27 mmol/L (21-32); CHLORIDE,CL 102 mmol/L (100-108); CREATININE 1.1 mg/dL (0.8-1.3); EST CRCL DRUG DOSING (CG) 91.12 mL/min; ESTIMATED GFR 83 mL/min (>60); GLUCOSE RANDOM 211 mg/dL (74-106); POTASSIUM,K 4.2 mmol/L (3.6-5.2); PROTEIN TOTAL,TP 7.3 g/dL (6.4-8.2); SODIUM,NA 137 mmol/L (140-148)
== END 2025-02-19 22:19 | disposition home or self-care (01) ==
LOC: JP.ED 18:09
DX: I82.431 Acute embolism and thrombosis of right popliteal vein (principal); I82.411 Acute embolism and thrombosis of right femoral vein; I82.441 Acute embolism and thrombosis of right tibial vein; I10 Essential (primary) hypertension; Z91.030 Bee allergy status; Z79.899 Other long term (current) drug therapy
CPT/HCPCS: 36415; 80053; 84484; 85025; 85379; 93005; 93971; 99284; A9270